=== PATIENT | male | born 1965 | race Caucasian/White ===

== ENCOUNTER 2017-08-02 12:00 | Emergency (ER) | payer MEDICAID, OTHER ==
[~2017-08-02] VITALS: Ht 157.5 cm; Wt 63.5 kg
[2017-08-02 12:02] VITALS: Ht 157.5 cm; Wt 63.5 kg
[2017-08-02] MEDS ORDERED: PHEN-530 PO (14:24)
--- NOTE | 2017-08-02 14:31 | ERD ---
ER Documentation Chief Complaint Chief Complaint SINUS PRESSURE, RUNNY NOSE, EARS PLUGGED HPI 51-year-old male with a history of seasonal allergies presents with a chief complaint of sinus pressure, runny nose, and change in hearing from the left ear. Has had similar symptoms in the past have spontaneously resolved. States that the symptoms started 1 day ago. Similar episode a few days ago that resolved after blowing nose. Has taken Claritin without relief. No other alleviating or aggravating factors. Denies drainage, fever, chills, headache, difficulty breathing, chest pain, sick contacts. Patient has no other complaints and describes no other associated manifestations. Nursing notes have been reviewed and are consistent with history given. ROS All systems reviewed and are negative except as per history of present illness. Medications Home Meds Active Scripts Phenylephrine/Dm/Acetaminop/GG (Sudafed PE Pressure+Pain+Cold) 1 Each Tablet, 1 EACH PO BID for 7 Days, TAB Prov:JESSICA WRIGHT PA-C 08/02/17 Allergies Allergies: Coded Allergies: No Known Drug Allergies (Verified Allergy, Unknown, 03/15/14) PMhx/Soc History of Surgery: No Anesthesia Reaction: No Hx Neurological Disorder: No Hx Respiratory Disorders: No Hx Cardiac Disorders: No Hx Psychiatric Problems: No Hx Miscellaneous Medical Probl: No Hx Alcohol Use: Yes (OCCAS) Hx Substance Use: No Hx Tobacco Use: No Smoking Status: Never smoker Physical Exam Vitals Vital Signs Date Time Temp Pulse Resp B/P Pulse Ox O2 Delivery O2 Flow Rate FiO2 08/02/17 12:02 98.2 60 18 137/76 98 Physical Exam Const: Well-appearing 51-year-old male in no acute distress Head: Atraumatic . No sinus tenderness. Eyes: Normal Conjunctiva. PERRLA, EOMI bilaterally. No nystagmus. ENT: Denies altered mental status, change in behavior per historian, loss of consciousness, vomiting, or severe headache. Normal External Nose and Mouth. Neck: Full range of motion..~ No meningismus. Resp: Clear to auscultation bilaterally Cardio: Regular rate and rhythm, no murmurs Abd: Soft, non tender, non distended. Normal bowel sounds Skin: No petechiae or rashes Back: No midline or flank tenderness Ext: No cyanosis, or edema Neur: Awake and alert Psych: Normal Mood and Affect Procedures/MDM 51-year-old male presenting with a chief complaint of congestion and change in hearing from left ear. Similar symptoms in past. History of allergies. Physical exam showing right retracted tympanic membrane. Most likely diagnosis is retracted tympanic membrane secondary to sinus pressure. I have no suspicion for hearing loss, ACS, intracranial pathology, or other acute conditions. I have spoke with the patient regarding their condition and future management. They have verbally responded that they understand their status and treatment plan. The patients vitals are stable, and their current condition is appropriate for discharge. The patient will be given discharge instructions with return precautions. Departure Diagnosis: Primary Impression: Environmental allergies Condition: Stable Patient Instructions: Adult Self-Care for Colds Additional Instructions: Follow up with your PCP within the next 1-3 days for a more thorough evaluation and a possible referral to a specialist. Return the the emergency department immediately if symptoms worsen or change. If you have any questions regarding medications, ask your pharmacist or us before you leave. If any adverse reactions occur while taking your medications, discontinue the treatment and return to the emergency department immediately. Take your medications as directed, and complete the entire course of treatment. JESSICA WRIGHT PA-C Aug 02, 2017 14:31
== END 2017-08-02 14:32 | disposition home or self-care (01) ==
LOC: FTE 12:00
DX: T78.40XA Allergy, unspecified, initial encounter (principal)
CPT/HCPCS: 99283